=== PATIENT | male | born 1980 | race Caucasian/White ===

== ENCOUNTER 2017-10-16 13:23 | Emergency (ER) | payer OTHER ==
[~2017-10-16] VITALS: Ht 185.4 cm; Wt 74.8 kg
[~2017-10-16 13:23] MED LIST: BENZ1TAB7 PO; DIPH50CA37 PO; GABA600T2 PO; LORA-259 PO; MIRT15TA7 PO; OLAN300V IM; ZOLP10TA2 PO
--- NOTE | 2017-10-16 13:30 | NUR ---
[facility], PATIENT WAS CUTTING HIS WRIST WITH THE RAZOR. SKIN IS WARM AND DRY. RESP IS EVEN AND UNLABORED WITH NAD NOTED. AWAITING MD FOR EVAL.
[2017-10-16] MEDS ORDERED: IBUPROFEN 600 MG TABLET PO ONE (13:46)
[2017-10-16] MEDS: IBUPROFEN 600 MG TABLET PO ONE (13:50)
[2017-10-16 13:51] LABS: BASOPHILS # (AUTO) 0.2 /CMM (0.0-0.2); BASOPHILS % (AUTO) 2.3 % (0.0-2.0); EOSINOPHILS % (AUTO) 3.8 % (0.0-6.0); HEMATOCRIT 43 % (39-51); HEMOGLOBIN 14.4 g/dL (13.5-17.5); LYMPHOCYTES # (AUTO) 1.5 /CMM (0.8-4.8); MEAN CORPUSCULAR HGB CONC 34 g/dl (31.0-36.0); MEAN CORPUSCULAR VOLUME 85 fL (80-96); MONOCYTES # (AUTO) 0.6 /CMM (0.1-1.30); MONOCYTES % (AUTO) 7.3 % (2.0-12.0); NEUTROPHILS # (AUTO) 5.5 /CMM (1.8-8.9); NEUTROPHILS % (AUTO) 67.6 % (43.0-81.0); PLATELET COUNT (AUTO) 225 /CMM (150-450); RDW COEFFICIENT OF VARIATION 13.8 (11.5-15.0); RED BLOOD CELL COUNT(AUTO) 4.98 MIL/uL (4.5-6.0); WHITE BLOOD COUNT (AUTO) 8.1 K/uL (4.3-11.0)
[2017-10-16 13:59] LABS: CALCIUM, SERUM 8.7 mg/dL (8.5-10.1); CARBON DIOXIDE 28 mmol/L (21-32); CHLORIDE 105 mmol/L (98-107); CREATININE 0.9 mg/dL (0.6-1.3); GLUCOSE 96 mg/dL (74-106); SODIUM SERUM 139 mmol/L (136-145); UREA NITROGEN, BLOOD 13 mg/dL (7-18)
[2017-10-16 14:04] LABS: ALANINE AMINOTRANSFERASE 17 U/L (12-78); ALBUMIN 3.3 g/dL (3.4-5.0); ALCOHOL, BLOOD < 3 mg/dL (0-0); ALKALINE PHOSPHATASE 68 U/L (46-116); ASPARTATE AMINOTRANSFERASE 12 U/L (15-37); BILIRUBIN,DIRECT 0.1 mg/dL (0.0-0.2); BILIRUBIN,TOTAL 0.3 mg/dL (0.2-1.0); TOTAL PROTEIN, SERUM 6.7 g/dL (6.4-8.2)
[2017-10-16 14:10] LABS: ACETAMINOPHEN 0 ug/ml (10-30); SALICYLATE 2.7 mg/dL (2.8-20.0)
--- NOTE | 2017-10-16 14:25 | NUR ---
Patient is resting comfortably in bed with eyes closed. Easily aroused. VSS
[2017-10-16 14:31] LABS: APPEARANCE,URINE Clear (CLEAR); BILIRUBIN,URINE SMALL (NEGATIVE); BLOOD, URINE Trace-intact Ery/uL (NEGATIVE); COLOR,URINE Yellow (YELLOW); KETONES,URINE Trace (NEGATIVE); LEUKOCYTE ESTERASE ,URINE Negative (NEGATIVE); NITRITE, URINE Negative (NEGATIVE); PROTEIN,URINE Negative (NEGATIVE); UGLUCOSE Negative (NEGATIVE); UROBILINOGEN,URINE 0.2 EU/dL (0.2)
[2017-10-16 14:45] LABS: BACTERIA,URINE None seen /HPF (None Seen); MUCUS,URINE Few /LPF (None Seen); SQUAMOUS EPITHELIAL CELL,UR Few /HPF (None Seen); WBC,URINE 0-3 /HPF (0-3)
--- NOTE | 2017-10-16 16:20 | NUR ---
PROVIDED FOOD AT
--- NOTE | 2017-10-16 16:30 | NUR ---
Patient is resting comfortably in bed with eyes closed. Easily aroused. VSS
--- NOTE | 2017-10-16 16:35 | NUR ---
REAL AT [facility]
--- NOTE | 2017-10-16 16:45 | NUR ---
CALLED EMEKA GARCIA AND SHE SAID SHE WOULD EB HERE WITHIN THE HOUR
[2017-10-16] MEDS ORDERED: OLANZAPINE 5 MG TABLET ONE (17:58)
[2017-10-16] MEDS: OLANZAPINE 5 MG TABLET PO ONE (18:00)
--- NOTE | 2017-10-16 19:00 | NUR ---
REPORT GIVEN TO LOVE FERRARI FOR ANGELA.
--- NOTE | 2017-10-16 19:02 | NUR ---
REPORT RECEIVED FROM LOVE GONZALEZ FOR ANGELA.
--- NOTE | 2017-10-16 19:10 | NUR ---
SITTER AT BEDSIDE.
--- NOTE | 2017-10-16 19:30 | NUR ---
CALLED [facility] AND SPOKE WITH THEIR DISPATCHER XAVIER TO ARRANGE A BLS TRANSPORT TO [facility]. WAS GIVEN A [facility]OT[facility] PRESSER TIME OF [id number]. TRIP #: [id number]
[2017-10-16 19:47] VITALS: BP 112/76
--- NOTE | 2017-10-16 21:06 | NUR ---
PT RESTING QUIETLY, SITTER REMAINS AT BEDSIDE. VSS. RN TO CONTINUE TO PROVIDE SAFETY/COMFORT MEASURES.
--- NOTE | 2017-10-16 22:06 | NUR ---
REPORT GIVEN TO SUNNY MCKEON FOR TRANSPORT TO [facility].
== END 2017-10-16 22:08 ==
LOC: ER 13:24
DX: S61.512A Laceration without foreign body of left wrist, initial encounter (principal); S51.812A Laceration without foreign body of left forearm, initial encounter; F31.9 Bipolar disorder, unspecified; F20.9 Schizophrenia, unspecified; Z60.2 Problems related to living alone; X78.8XXA Intentional self-harm by other sharp object, initial encounter; Y93.89 Activity, other specified; Y92.89 Other specified places as the place of occurrence of the external cause; Y99.8 Other external cause status
CPT/HCPCS: 36415; 80048-TC; 80076-TC; 80305; 81000-TC; 85025-TC; A4606; G0480; Z7610

== ENCOUNTER 2019-03-25 12:10 | Emergency (ER) | payer OTHER ==
[~2019-03-25] VITALS: Ht 167.6 cm; Wt 57.6 kg
[~2019-03-25 12:10] MED LIST changes: +GABA600T12 PO; -GABA600T2 PO
--- NOTE | 2019-03-25 12:47 | NUR ---
JAY RA 58 From home "Suicidal ideation- plan cut wrist/hearing voices telling him to kill himself" Denies ETOH/Drugs today. PT AAOX3, VSS. RR EVEN & UNLABORED. DENIES CP, SOB, DIZZINESS, N/V, WEAKNESS @ THIS TIME. AWAITING EVAL BY ERMD/PA. WILL CONT TO MONITOR. REAL @ BS.
[2019-03-25 12:48] LABS: BASOPHILS # (AUTO) 0.1 /CMM (0.0-0.2); BASOPHILS % (AUTO) 0.8 % (0.0-2.0); EOSINOPHILS % (AUTO) 4.7 % (0.0-6.0); HEMATOCRIT 42 % (39-51); HEMOGLOBIN 14.5 g/dL (13.5-17.5); LYMPHOCYTES # (AUTO) 1.6 /CMM (0.8-4.8); LYMPHOCYTES % (AUTO) 22.7 % (20.0-44.0); MEAN CORPUSCULAR HGB CONC 35 g/dl (31.0-36.0); MEAN CORPUSCULAR VOLUME 90 fL (80-96); MONOCYTES # (AUTO) 0.6 /CMM (0.1-1.30); MONOCYTES % (AUTO) 8.1 % (2.0-12.0); NEUTROPHILS # (AUTO) 4.6 /CMM (1.8-8.9); NEUTROPHILS % (AUTO) 63.7 % (43.0-81.0); PLATELET COUNT (AUTO) 184 /CMM (150-450); RED BLOOD CELL COUNT(AUTO) 4.67 MIL/uL (4.5-6.0); WHITE BLOOD COUNT (AUTO) 7.3 K/uL (4.3-11.0)
[2019-03-25 12:55] LABS: CALCIUM, SERUM 8.9 mg/dL (8.5-10.1); CARBON DIOXIDE 26 mmol/L (21-32); CHLORIDE 104 mmol/L (98-107); CREATININE 0.9 mg/dL (0.6-1.3); GLUCOSE 96 mg/dL (74-106); POTASSIUM 4.1 mmol/L (3.5-5.1); SODIUM SERUM 137 mmol/L (136-145); UREA NITROGEN, BLOOD 15 mg/dL (7-18)
[2019-03-25 13:09] LABS: ALANINE AMINOTRANSFERASE 10 U/L (12-78); ALBUMIN 3.7 g/dL (3.4-5.0); ALKALINE PHOSPHATASE 72 U/L (46-116); ASPARTATE AMINOTRANSFERASE 10 U/L (15-37); BILIRUBIN,DIRECT 0.1 mg/dL (0.0-0.2); BILIRUBIN,TOTAL 0.4 mg/dL (0.2-1.0); SALICYLATE 2.9 mg/dL (2.8-20.0); TOTAL PROTEIN, SERUM 6.8 g/dL (6.4-8.2)
[2019-03-25 13:10] LABS: ACETAMINOPHEN < 10 ug/ml (10-30); ALCOHOL, BLOOD < 3 mg/dL (0-0)
[2019-03-25 13:24] LABS: APPEARANCE,URINE Clear (CLEAR); BILIRUBIN,URINE Negative (NEGATIVE); BLOOD, URINE Negative Ery/uL (NEGATIVE); COLOR,URINE Yellow (YELLOW); KETONES,URINE 15 (NEGATIVE); LEUKOCYTE ESTERASE ,URINE Negative (NEGATIVE); NITRITE, URINE Negative (NEGATIVE); PROTEIN,URINE Negative (NEGATIVE); UGLUCOSE Negative (NEGATIVE)
--- NOTE | 2019-03-25 13:44 | NUR ---
STELLA, SOCIAL SERVICE @ BS FOR EVAL.
--- NOTE | 2019-03-25 13:45 | NUR ---
Social service consult requested by NOEL Caba for suicidal ideation with a plan. Pt. is a 38 year old male who was brought to [facility] ED by rescue ambulance from home with complaints of hearing voices telling him to kill himself for the last month. He has a plan to cut his wrists. RICH met with the pt. bedside. Pt. is alert and oriented x 3. Pt. had a black bandana covering his head and his eyes throughout the entire assessment. Pt. appeared dirty and disheveled. His shirt had food stains on them. Pt. states he lives with roommates at [address] [place] [address]. Pt. has significant history of schizophrenia and states he is compliant with prescribed medication. Pt. states he is suicidal with a plan to cut his wrists. Pt. is willing to go voluntary to a psychiatric hospital. Pt. denies any alcohol use. Pt. uses marijuana. Pt. smokes 1/2 pack of cigarettes per day. Pt. states his emergency contact is his Marla but is unable to provide contact information. RICH to refer pt. to [facility] and [facility] clinicals to intake at .
--- NOTE | 2019-03-25 14:02 | NUR ---
RICH faxed clinicals to intake at [facility] .
--- NOTE | 2019-03-25 14:30 | NUR ---
Patient is resting comfortably in bed with eyes closed. Easily aroused. VSS
--- NOTE | 2019-03-25 15:49 | NUR ---
RICH contacted Alexis in [facility] intake to inquire if pt. has been accepted. Alexis informed RICH he will call the substation electrician supervisor at [facility] and follow up with RICH in a few minutes.
--- NOTE | 2019-03-25 15:59 | NUR ---
RICH received a call back from Alexis in intake at [facility] stating pt. has been accepted by psychiatrist Dr. Zavala and medical Dr. Rudolph. Report called to to discharge specialistLOVE Casanova. RICH updated LOVE Page with updated information.
--- NOTE | 2019-03-25 16:50 | NUR ---
REPORT GIVEN TO LOVE LOPEZ @ [facility] FOR [facility].
--- NOTE | 2019-03-25 17:27 | NUR ---
CALLED [facility], [phone], TRIP #[id number]
[2019-03-25 19:46] VITALS: BP 126/69
--- NOTE | 2019-03-25 19:48 | NUR ---
Patient is resting comfortably in bed with eyes closed. Easily aroused. VSS
--- NOTE | 2019-03-25 19:52 | NUR ---
CALL FROM DONNELL MCKEON [facility] [phone]
== END 2019-03-25 23:52 ==
LOC: ER 12:13
DX: R45.851 Suicidal ideations (principal); Z60.2 Problems related to living alone; Z79.899 Other long term (current) drug therapy
CPT/HCPCS: 36415; 80048; 80076; 80305; 80307; 80329; 81001; 85025; 99285; G0480; 81000-TC

== ENCOUNTER 2020-02-14 09:10 | Emergency (ER) | payer OTHER ==
[~2020-02-14] VITALS: Ht 170.2 cm; Wt 65.8 kg
[2020-02-14 09:13] VITALS: BP 135/81
== END 2020-02-14 09:42 ==
LOC: ER 09:10
DX: R51 Headache (principal); F31.9 Bipolar disorder, unspecified; F20.9 Schizophrenia, unspecified; Z60.2 Problems related to living alone; Z79.899 Other long term (current) drug therapy

== ENCOUNTER 2020-02-14 23:55 | Emergency (ER) | payer OTHER ==
[~2020-02-14] VITALS: Ht 175.3 cm; Wt 59.0 kg
[2020-02-14 23:59] VITALS: BP 93/72
[2020-02-15] MEDS ORDERED: IBUPROFEN 600 MG TABLET PO ONE ×2 (00:17→00:30)
== END 2020-02-15 00:24 | disposition home or self-care (01) ==
LOC: ER 02-15
DX: R51 Headache (principal); M25.562 Pain in left knee; I10 Essential (primary) hypertension; F20.9 Schizophrenia, unspecified; F31.9 Bipolar disorder, unspecified; F17.200 Nicotine dependence, unspecified, uncomplicated; Z79.899 Other long term (current) drug therapy; W18.39XA Other fall on same level, initial encounter; Y93.89 Activity, other specified; Y92.89 Other specified places as the place of occurrence of the external cause; Y99.8 Other external cause status